=== PATIENT | male | born 1945 | race Caucasian/White ===

== ENCOUNTER 2024-09-27 10:22 | Emergency (ER) | payer OTHER, SELFPAY ==
[2024-09-27 10:33] VITALS: BP 130/71
--- NOTE | 2024-09-27 12:00 | ED.GENMED ---
History of Present Illness
General
Chief Complaint: Skin Problem
Source: patient
Time Seen by Provider: 09/27/24 11:17
History of Present Illness
History of Present Illness:
79-year-old male with past medical history of hypertension presenting to the emergency department for evaluation of a wound sustained to the right lower leg that began about 2 weeks ago, seen by urgent care and prescribed triamcinolone ointment and
cefdinir which she has been taking with some relief although notes the wound still has not fully healed and started draining clear fluid and was concerned that he was having an infection prompting him come to the ER. He still notes some mild
discomfort associated. Denies any fevers, chills, rigors, no weakness or numbness or any other concerns. No known history of diabetes or peripheral vascular disease, denies any history of cigarettes or tobacco use.
Past History
Past History
ED Past Medical History: HTN and Other (Kidney stones)
ED Past Surgical History: None
Social History
Tobacco: Non-smoker
Alcohol: Occasional
Drug: None
Personal:
Living: with family
Review of Systems
Review of Systems
All Other Systems: ROS reviewed and negative except as documented in HPI and ROS
Phy Exam
Physical Exam
Physical Exam:
GENERAL: Alert , in no apparent distress
EYE: conjunctiva clear
Head: Normocephalic atraumatic
NECK: Supple,
ENT: mmm.
LUNGS: no acute respiratory distress
NEUROLOGICAL: Alert and oriented
SKIN: Warm and dry, small 1 cm wound slightly dehisced, slight erythema along the borders but does not extend past this with small scab formation more proximally, distally the wound is still open but without any purulent drainage. There is very
small clear oozing but no purulent drainage, not hot to the touch, it is somewhat tender
MUSCULOSKELETAL: well perfused.
PSYCH: Normal and appropriate interaction.
Scores
Heart Failure Risk
Heart Failure Risk Score: Not Applicable
Heart Score for Chest Pain Patients
STEMI patient?: Not applicable
Withdrawal Assessment of Alcohol
Withdrawal Assessment Completed?: Not applicable
Course
Orders/Labs/Results
Orders:
Orders
09/27/24 13:07
Wound Culture [Wound/Abscess/Other Culture] Urgent
JOSS Source: Leg
Specimen Description: Right
Date Specimen was Collected: 09/27/24
Time Specimen was Collected: 13:04
Vital Signs
Initial and Last Documented VS:
Initial Vital Signs
Temp Pulse Resp BP Pulse Ox
98.7 F 60 16 130/71 97
09/27/24 10:33 09/27/24 10:33 09/27/24 10:33 09/27/24 10:33 09/27/24 10:33
Last Documented Vital Signs
Temp Pulse Resp BP Pulse Ox
98.7 F 60 16 130/71 97
09/27/24 10:33 09/27/24 10:33 09/27/24 10:33 09/27/24 10:33 09/27/24 12:00
MDM/Problems Addressed
Differential Diagnosis Includes:
- Nonhealing wound
- Abscess
- Cellulitis
- Peripheral vascular disease/arterial disease
- Diabetic wound
MDM/Problems Addressed:
79-year-old male presenting the ER for evaluation of a wound to the right anterior lower leg. No fevers, no lymphangitis, mild pain associated but there is no purulent drainage. I do suspect that there is just prolonged healing taking place as
part of the wound but given this is taken slightly more time and there is still pain as well as the wound still being open will add on additional MRSA coverage with Bactrim. I provided the patient with information for the wound care center for
close follow-up and encouraged him to contact them for a follow-up appointment. Patient is otherwise stable for discharge home and aware of return precautions
*Pulse Oximetry
SaO2: 97
Oxygen Mode of Delivery: Room air
Patient hypoxic: no
*Critical Care Note
Total Time (30-74mins, 75-104mins- exclusive of procedures): Not Applicable
ED Attending Note
-
Portions of this chart may have been created with voice recognition software.� Occasional wrong word or��sound alike� substitutions may have occurred due to the inherent limitations of voice recognition software.
Discharge Plan
Departure
Patient Disposition: Home (Routine Discharge)
Date of Disposition: 09/27/24
Time of Disposition: 12:00
Patient with high blood pressure during this ER visit?: No
Discharge Problem:
Leg wound, right
Instructions: Wound Care (DC)
Prescriptions:
New
sulfamethoxazole-trimethoprim [Bactrim DS] 800-160 mg tablet
1 tab PO BID 7 Days Qty: 14 0RF
No Action
No Meds [No Current Medications]
Patient Comments:
patient takes no meds on a consistant basis other than the recent prescription from 05/31/10
amoxicillin-pot clavulanate 875 MG/125 MG tablet
1 tab PO Q12 Qty: 20 0RF
Patient Comments:
new prescription from 05/31/10
hydrocodone-acetaminophen 5 MG/500 MG tablet
1 tab PO Q4HPRN PRN (Reason: pain) Qty: 20 0RF
Patient Comments:
patient stated he has not filled this prescription from 05/31/10
ibuprofen [Advil] 200 MG tablet
400 mg PO PRN PRN (Reason: pain)
Referrals:
Wound Care Center [Outside]
Jude Cervantes I., DO [Family Provider, Internal Medicine]
Interventions
Interventions:
*Risk Screen - Suicide Last Done: 09/27/24 11:06
*General Assessment Last Done: 09/27/24 11:06
*Neglect/Abuse Screening Last Done: 09/27/24 11:06
*ED- Fall Risk Assessment Last Done: 09/27/24 11:06
*ED COVID-19 Vaccine History Last Done: 09/27/24 11:06
*Nursing Disposition Last Done: 09/27/24 13:10
ED-Skin Assessment Last Done: 09/27/24 11:05
Discharge Date and Time
Discharge Date/Time: 09/27/24 13:10
Print Language: [place]
== END 2024-09-27 13:10 | disposition home or self-care (01) ==
LOC: EMR 10:22
PROVIDERS: EMERGENCY PHYSICIAN Emergency Medicine; FAMILY PHYSICIAN Internal Medicine
DX: S81.801A Unspecified open wound, right lower leg, initial encounter (principal); X58.XXXA Exposure to other specified factors, initial encounter; I10 Essential (primary) hypertension
CPT/HCPCS: 99283; 87070; 87205

== ENCOUNTER → 2024-10-13 12:41 | Outpatient (REF) | payer OTHER, SELFPAY | LOC: WOUND 12:41 | PROVIDERS: ATTENDING PHYSICIAN Surgery; FAMILY PHYSICIAN Internal Medicine | DX: L97.212 Non-pressure chronic ulcer of right calf with fat layer exposed (principal); I10 Essential (primary) hypertension | CPT/HCPCS: 11042; 99203 ==

== ENCOUNTER → 2024-10-20 13:53 | Outpatient (REF) | payer OTHER, SELFPAY | LOC: WOUND 13:53 | PROVIDERS: ATTENDING PHYSICIAN Surgery; FAMILY PHYSICIAN Internal Medicine | DX: L97.212 Non-pressure chronic ulcer of right calf with fat layer exposed (principal); I10 Essential (primary) hypertension | CPT/HCPCS: 11042; 99203 ==

== ENCOUNTER → 2024-10-27 13:54 | Outpatient (REF) | payer OTHER, SELFPAY | LOC: WOUND 13:54 | PROVIDERS: ATTENDING PHYSICIAN Surgery; FAMILY PHYSICIAN Internal Medicine | DX: L97.212 Non-pressure chronic ulcer of right calf with fat layer exposed (principal); I10 Essential (primary) hypertension | CPT/HCPCS: 11042 ==

== ENCOUNTER → 2024-11-03 11:19 | Outpatient (REF) | payer OTHER, SELFPAY | LOC: WOUND 11:19 | PROVIDERS: ATTENDING PHYSICIAN Surgery; FAMILY PHYSICIAN Internal Medicine | DX: L97.212 Non-pressure chronic ulcer of right calf with fat layer exposed (principal); I10 Essential (primary) hypertension | CPT/HCPCS: 99213 ==

== ENCOUNTER → 2024-11-10 13:21 | Outpatient (REF) | payer OTHER, SELFPAY | LOC: WOUND 13:21 | PROVIDERS: ATTENDING PHYSICIAN Surgery; FAMILY PHYSICIAN Internal Medicine | DX: L97.212 Non-pressure chronic ulcer of right calf with fat layer exposed (principal); I10 Essential (primary) hypertension | CPT/HCPCS: 99213 ==

== ENCOUNTER → 2024-11-17 14:54 | Outpatient (REF) | payer OTHER, SELFPAY | LOC: WOUND 14:54 | PROVIDERS: ATTENDING PHYSICIAN Surgery; FAMILY PHYSICIAN Internal Medicine | DX: L97.512 Non-pressure chronic ulcer of other part of right foot with fat layer exposed (principal); I10 Essential (primary) hypertension | CPT/HCPCS: 11042 ==

== ENCOUNTER → 2024-11-28 13:32 | Outpatient (REF) | payer OTHER, SELFPAY | LOC: WOUND 13:32 | PROVIDERS: ATTENDING PHYSICIAN Surgery; FAMILY PHYSICIAN Internal Medicine | DX: L97.212 Non-pressure chronic ulcer of right calf with fat layer exposed (principal); I10 Essential (primary) hypertension | CPT/HCPCS: 97597 ==

== ENCOUNTER → 2024-12-12 14:59 | Outpatient (REF) | payer OTHER, SELFPAY | LOC: WOUND 14:59 | PROVIDERS: ATTENDING PHYSICIAN Surgery; FAMILY PHYSICIAN Internal Medicine | DX: L97.212 Non-pressure chronic ulcer of right calf with fat layer exposed (principal); I10 Essential (primary) hypertension | CPT/HCPCS: 97597 ==

== ENCOUNTER → 2024-12-21 13:24 | Outpatient (REF) | payer OTHER, SELFPAY | LOC: WOUND 13:24 | PROVIDERS: ATTENDING PHYSICIAN Surgery; FAMILY PHYSICIAN Internal Medicine | DX: L97.212 Non-pressure chronic ulcer of right calf with fat layer exposed (principal) | CPT/HCPCS: 99213 ==

== ENCOUNTER → 2025-01-04 14:57 | Outpatient (REF) | payer OTHER, SELFPAY | LOC: WOUND 14:57 | PROVIDERS: ATTENDING PHYSICIAN Surgery; FAMILY PHYSICIAN Internal Medicine | DX: L97.212 Non-pressure chronic ulcer of right calf with fat layer exposed (principal); I10 Essential (primary) hypertension | CPT/HCPCS: 99212 ==